=== PATIENT | female | born 1990 | race Caucasian/White ===

== ENCOUNTER 2016-08-23 20:23 | Emergency (ER) | payer OTHER ==
[~2016-08-23] VITALS: Ht 160 cm; Wt 50.2 kg
[2016-08-23 21:29] LABS: HEMOGLOBIN 12.9 g/dl (12.0-16.0); IMMATURE GRANULOCYTES 0.4 % (0.0-1.0); MEAN CELL VOLUME 89.9 fL CALC (80.0-100.0); MEAN CORPUSCULAR HGB 28.3 pG CALC (26.0-32.0); MEAN CORPUSCULAR HGB CONC 31.5 g/L CALC (32.0-36.0); NEUT# 4.78 thou/uL (2.00-7.15); RED BLOOD COUNT 4.56 mill/uL (4.20-5.60); RED CELL DISTRI WIDTH 14.1 % (11.5-15.5)
[2016-08-23 21:32] LABS: URINE BILIRUBIN - DIPSTICK NEGATIVE (NEGATIVE); URINE BLOOD DIPSTICK NEGATIVE (NEGATIVE); URINE COLOR YELLOW; URINE GLUCOSE - DIPSTICK NEGATIVE (NEGATIVE); URINE KETONE NEGATIVE (NEGATIVE); URINE LEUK ESTERASE NEGATIVE (NEGATIVE); URINE NITRITE - DIPSTICK NEGATIVE (Negative); URINE PROTEIN - DIPSTICK NEGATIVE (NEG-TRACE); URINE SPECIFIC GRAVITY 1.025; URINE UROBILINOGEN - DIPSTICK 0.2 E.U./dL (0.2)
[2016-08-23 21:33] LABS: URINE CLARITY HAZY
[2016-08-23 21:51] LABS: ALKALINE PHOSPHATASE 64 u/l (38-126); AMYLASE 94 u/l (30-110); ANION GAP 16 (6-22 (CALC)); BILIRUBIN, TOTAL 0.3 mg/dL (0.0-1.4); BUN 12 mg/dL (7-17); BUN/CREATININE RATIO 16 (12-20 (CALC)); CALCIUM 10.2 mg/dL (8.4-10.2); CARBON DIOXIDE 28 mmol/l (22-30); CHLORIDE 103 mmol/l (95-108); CREATININE 0.8 mg/dL (0.5-1.0); GFR > 60 ML/MIN (>=60 (CALC)); GFR FOR AFR.AMER. > 60 ML/MIN (>=60 (CALC)); GLUCOSE 83 mg/dL (65-105); LIPASE 126 u/l (23-300); POTASSIUM 3.8 mmol/l (3.5-5.1); SGOT/AST 22 u/l (14-36); SGPT/ALT 24 u/l (9-52); SODIUM 143 mmol/l (137-146); TOTAL PROTEIN 8.9 g/dL (6.3-8.2)
[2016-08-23] MEDS ORDERED: PREVACID30 M3 PO (23:47)
[2016-08-23] MEDS ORDERED: ULTRAM50 M1 PO (23:47)
[2016-08-24 00:10] VITALS: BP 115/78
== END 2016-08-24 00:12 | disposition home or self-care (01) | DRG 392 ==
LOC: ED 20:23
PROVIDERS: Emergency Medicine
DX: R10.13 Epigastric pain (principal); K29.70 Gastritis, unspecified, without bleeding; R10.33 Periumbilical pain; R11.0 Nausea
CPT/HCPCS: Q9967; S0164